=== PATIENT | female | born 1980 | race Two or more races ===

== ENCOUNTER 2020-04-26 06:09 | Emergency (ER) | payer MEDICAID ==
[~2020-04-26] VITALS: Ht 165.1 cm; Wt 80.0 kg
--- NOTE | 2020-04-26 06:23 | NUR ---
PA AT BEDSIDE FOR ASSESSMENT
[2020-04-26] MEDS ORDERED: KETOROLAC 30 MG/1 ML IM ONE (06:30)
[2020-04-26] MEDS ORDERED: CYCLOBENZAPRINE 10 MG TABLET ONE (06:30)
[2020-04-26] MEDS ORDERED: KETOROLAC 30 MG/1 ML ONE (06:30)
[2020-04-26] MEDS ORDERED: CYCLOBENZAPRINE 10 MG TABLET PO ONE (06:30)
--- NOTE | 2020-04-26 06:53 | NUR ---
Recieved report from [facility]. Pt resting in bed, given warm blanket for comfort.
[2020-04-26 06:54] VITALS: BP 129/88
== END 2020-04-26 07:33 | disposition home or self-care (01) ==
LOC: ED 07:20
DX: M54.32 Sciatica, left side (principal); Z90.49 Acquired absence of other specified parts of digestive tract
CPT/HCPCS: 73502; 96372; 99283; J1885